=== PATIENT | female | born 1955 | race Caucasian/White ===

== ENCOUNTER → 2023-01-06 | Outpatient (CLI) | payer MEDICARE, OTHER ==
[2023-01-08 05:12] LABS: CHLAMYDIA TRACHOMATIS, NAA Negative (Negative)
[2023-01-08 16:07] LABS: HPV 16 Negative (Negative); HPV 18 Negative (Negative); HPV OTHER HR TYPES Positive (Negative)
== END ==
LOC: LAB 13:17 → LAB SHORT 13:17
PROVIDERS: Student in an Organized Health Care Education/Training Program
DX: Z12.4 Encounter for screening for malignant neoplasm of cervix (principal); Z11.3 Encounter for screening for infections with a predominantly sexual mode of transmission
CPT/HCPCS: 87491; 87591; 87624; G0145

== ENCOUNTER → 2023-02-11 | Outpatient (CLI) | payer MEDICARE, OTHER | LOC: LAB SHORT 10:47 → PLD 10:47 | DX: R87.810 Cervical high risk human papillomavirus (HPV) DNA test positive (principal) | CPT/HCPCS: 88305 ==

== ENCOUNTER 2023-08-10 06:35 | Day surgery (SDC) | payer OTHER ==
[~2023-08-10] VITALS: Ht 170.1 cm; Wt 77.0 kg
[~2023-08-10 06:35] MED LIST: CeFAZolin Sodium 2,000 MG in NS 100 ML IV SCH; Lactated Ringer's 1,000 ML IV SCH
[2023-08-10] MEDS ORDERED: NS IV SCH (06:55)
[2023-08-10] MEDS ORDERED: TRANEXAMIC ACID IV SCH (06:55)
[2023-08-10 06:56] VITALS: BP 147/98
[2023-08-10] MEDS ORDERED: EPINEPhrine HCl 1 MG/ML 1ML Amp ONE (07:12)
[2023-08-10] MEDS ORDERED: Lidocaine 1%-Epineph 1:100000 20 ML MDV ONE (07:12)
[2023-08-10] MEDS ORDERED: Acetaminophen 500 MG Tab PO ONE (07:15)
[2023-08-10] MEDS ORDERED: Bupivacaine 0.5% HCl 5 MG/ML 30MLVIAL ONE (07:30)
[2023-08-10] MEDS ORDERED: Ondansetron HCl 2 MG / ML 2ML Vial ONE (07:30)
[2023-08-10] MEDS ORDERED: Dexamethasone Sod Phos 10 MG/ML 1ML VIAL ONE (07:30)
[2023-08-10] MEDS ORDERED: propofoL 20 ML IV ONE (07:30)
[2023-08-10] MEDS ORDERED: propofoL 100 ML IV ONE (07:31)
[2023-08-10] MEDS ORDERED: Rocuronium Bromide 10 MG/ML 5ML Injection IV ONE (07:31)
[2023-08-10] MEDS ORDERED: Dexmedetomidine HCL 200 MCG / 2 ML ONE (07:31)
[2023-08-10] MEDS ORDERED: FentaNYL Citrate 50 MCG/ML 2 ML Injection ONE (07:31)
[2023-08-10] MEDS ORDERED: Midazolam HCL 1 MG/ML 5MLVIAL ONE (07:45)
[2023-08-10] MEDS ORDERED: Midazolam HCl 1MG / ML 2ML Vial ONE (07:46)
[2023-08-10] MEDS ORDERED: Sugammadex Sodium 200 MG/2ML SDV (100 MG/ML) ONE (08:43)
--- NOTE | 2023-08-10 09:06 | NUR ---
PROCEDURE CANCELLED IN DAY SURGERY AND PT DISCHARGED PER DR PEARCE ORDER. PT TAKEN TO [facility] VIA W/C TO BE ADMITTED FROM OUTPATIENT PROCEDURE. 20G IV IN LEFT WRIST REMAINS IN PLACE PER DR PEARCE ORDERS. REPORT GIVEN TO [facility]SC RN.
[2023-08-10] MEDS ORDERED: Phenylephrine HCl 100 MCG/ML-NS 10MLSYR (1MG/10ML) ONE ×2 (10:38)
== END 2023-08-10 23:17 | disposition home or self-care (01) ==
LOC: ORSCMMR 06:35 → ORSCSDS 07:30 → ORSCMMR 07:30
DX: M25.511 Pain in right shoulder (principal); Z53.9 Procedure and treatment not carried out, unspecified reason
CPT/HCPCS: A9270; J0171; J0690; J1100; J2250; J2371; J2405; J2704; J3010; J7120

== ENCOUNTER 2023-08-10 08:37 | Day surgery (SDC) | payer OTHER ==
[~2023-08-10] VITALS: Ht 170.2 cm; Wt 77.0 kg
--- NOTE | 2023-08-10 08:44 | NUR ---
[facility]10[facility]23 0844 [facility] RECEIVED REPORT FROM TERESITA MARTINEZ. PER JUAN, PATIENT HAS ALREADY BEEN CHLORHEXIDINE WIPED. ANTIBIOTICS ARE HANGING AND TXA HANGING. LR FLUIDS INFUSING AT TKO RATE.
[2023-08-10] MEDS ORDERED: Lactated Ringer's 1,000 ML IV ONE (08:46)
[2023-08-10] MEDS ORDERED: EPINEPhrine HCl 1 MG/ML 1ML Amp XX ONE (10:01)
--- NOTE | 2023-08-10 10:21 | NUR ---
08/10/23 1021 Zora Locke, TRIMANO, LEFT ARM SECURED ON PADDED ARM BOARD, WEDGE UNDER KNEES, GELX3, SEAT BELT X2. POSITION VERIFIED BY ANESTHESIA AND SURGEON.
[2023-08-10 12:08] VITALS: BP 117/75
--- NOTE | 2023-08-10 12:30 | NUR ---
08/10/23 1230 Lizbet Solis PT. UP TO RECLINER WITH SBA. PT. GIVEN PEPSI & COOKIES. DAUGHTER AT HER SIDE. POLAR ERIN INTACT. CALL LIGHT INTACT. WARM BLANKET GIVEN. PT. DENIES PAIN OR NAUSEA.
== END 2023-08-10 13:50 | disposition home or self-care (01) ==
LOC: ORSCSDS 08:37
PROVIDERS: Orthopaedic Surgery Sports Medicine
PROC: 0RNJ4ZZ Release Right Shoulder Joint, Percutaneous Endoscopic Approach (ICD-10-PCS; principal; 2023-08-10 09:00)
PROC: 0LQ14ZZ Repair Right Shoulder Tendon, Percutaneous Endoscopic Approach (ICD-10-PCS; principal; 2023-08-10 09:00)
DX: M75.101 Unspecified rotator cuff tear or rupture of right shoulder, not specified as traumatic (principal); M25.511 Pain in right shoulder
CPT/HCPCS: C1713; J0171